=== PATIENT | female | born 1995 | race Caucasian/White ===

== ENCOUNTER 2020-03-10 08:53 | Emergency (ER) | payer OTHER, BC ==
[~2020-03-10] VITALS: Ht 162.6 cm; Wt 61.2 kg
[2020-03-10] MEDS ORDERED: LOESTRIN FE 1-1 EACH PO (09:13)
[2020-03-10 09:47] VITALS: BP 109/67
[2020-03-10] MEDS ORDERED: NAPROSYN500 MG PO (09:54)
== END 2020-03-10 10:20 | disposition home or self-care (01) ==
LOC: ER 08:53
DX: S06.0X0A Concussion without loss of consciousness, initial encounter (principal); Z79.899 Other long term (current) drug therapy; W22.8XXA Striking against or struck by other objects, initial encounter; Y93.89 Activity, other specified; Y92.69 Other specified industrial and construction area as the place of occurrence of the external cause; Y99.8 Other external cause status